=== PATIENT | male | born 1980 | race Caucasian/White ===

== ENCOUNTER 2023-12-20 09:22 | Emergency (ER) | payer BC, SELFPAY ==
[2023-12-20 09:27] VITALS: BP 131/92
--- NOTE | 2023-12-20 09:44 | ED.GENMED ---
History of Present Illness
General
Chief Complaint: Oral/Mouth Problem
Time Seen by Provider: 12/20/23 09:31
History of Present Illness
History of Present Illness:
-year-old male presents to the emergency department left maxillary pain. He developed pain earlier in the week and saw his dentist yesterday, reportedly had numerous dental series x-rays that were unremarkable. He was recommended to see a root
canal specialist. He states the pain is constant, nonradiating. He has no fevers, chills, sweats, nasal congestion, rhinorrhea, ear pain, or sore throat. No jaw claudication. Has taken intermittent doses of ibuprofen without relief
Review of Systems
Review of Systems
Allergies reviewed?: Yes
All Other Systems: ROS reviewed and negative except as documented in HPI and ROS
Phy Exam
Physical Exam
Physical Exam:
GEN: Well appearing, NAD, WDWN
HEENT: Oral mucosa moist, no scleral icterus. Normal dentition, no obvious dental caries to the left maxillary teeth, no gingival erythema, swelling, grossly nontender to palpation. TMJ range of motion is normal without crepitus. No temporal
artery tenderness to the EXTR bilaterally with no erythema. No cervical adenopathy bilaterally
Cardiac: Regular rate
Lung: No respiratory distress, no tachypnea
MSK: No gross deformity or injuries
Skin: Good color, no pallor or jaundice, no rashes
Neuro: AO x3, moves all extremities freely
Psych: Calm, cooperative
Course
Vital Signs
Initial and Last Documented VS:
Initial Vital Signs
Temp Pulse Resp BP Pulse Ox
98.3 F 68 16 131/92 100
12/20/23 09:27 12/20/23 09:27 12/20/23 09:27 12/20/23 09:27 12/20/23 09:27
Last Documented Vital Signs
Temp Pulse Resp BP Pulse Ox
98.3 F 68 16 131/92 100
12/20/23 09:27 12/20/23 09:27 12/20/23 09:27 12/20/23 09:27 12/20/23 09:27
MDM/Problems Addressed
MDM/Problems Addressed:
Exam is grossly benign. He reportedly had outpatient dental x-rays that were negative. I see no clinical evidence for dental infection. He has no symptoms of sinusitis at this time. He is at age 50 and has no jaw claudication to suggest
tenosynovitis. Etiology unclear, recommend NSAIDs and plan to follow-up with root canal specialist as discussed with his dentist
*Critical Care Note
Total Time (30-74mins, 75-104mins- exclusive of procedures): Not Applicable
ED Attending Note
-
Portions of this chart may have been created with voice recognition software.� Occasional wrong word or��sound alike� substitutions may have occurred due to the inherent limitations of voice recognition software.
Discharge Plan
Departure
Patient Disposition: Home (Routine Discharge)
Date of Disposition: 12/20/23
Time of Disposition: 09:44
Patient with high blood pressure during this ER visit?: No
Discharge Problem:
Pain in upper jaw
Instructions: Dental Pain (DC)
Prescriptions:
New
diclofenac sodium 75 mg tablet,delayed release (DR/EC)
75 mg PO BID Qty: 14 0RF
Activity Restrictions/Additional Instructions:
Follow up with the root canal specialist as discussed
There is no evidence of tooth infection at this time
Interventions
Interventions:
*Nursing Disposition Last Done: 12/20/23 09:59
Discharge Date and Time
Discharge Date/Time: 12/20/23 10:00
Print Language: GEORGIAN
== END 2023-12-20 10:00 | disposition home or self-care (01) ==
LOC: EMR 09:22
PROVIDERS: EMERGENCY PHYSICIAN Emergency Medicine
DX: R68.84 Jaw pain (principal)
CPT/HCPCS: 99283

== ENCOUNTER 2025-03-09 14:19 | Emergency (ER) | payer BC, SELFPAY ==
[2025-03-09 14:22] VITALS: BP 129/92
[2025-03-09 14:36] LABS: Hematocrit 40.4 % (39.0-52.0); Hemoglobin 14.1 g/dL (13.0-18.0); Mean Corp Hgb Conc. 34.9 g/dL (33.0-37.0); Mean Corpuscular Volume 85.1 fL (80.0-94.0); Nucleated Red Blood Cells % 0 % (-); Platelet Count 287 10^3/uL (130-400); Red Cell Dist. Width 12.8 % (11.5-14.5)
[2025-03-09 14:54] LABS: ALT (SGPT) 19 U/L (0-50); AST (SGOT) 20 U/L (17-59); Albumin 4.9 g/dl (3.5-5.0); Alkaline Phosphatase 50 U/L (38-126); Blood Urea Nitrogen 14 mg/dl (9-20); Calcium 9.3 mg/dl (8.4-10.2); Carbon Dioxide 27 mmol/L (22-30); Chloride 104 mmol/L (98-107); Glucose 100 mg/dl (70-99); Lipase 34 U/L (23-300); Potassium 4.4 mmol/L (3.5-5.1); Sodium 137 mmol/L (135-145); Total Protein 8.0 g/dl (6.3-8.2); eGFR > 60.00
--- NOTE | 2025-03-09 15:21 | ED.GENMED ---
History of Present Illness
General
Chief Complaint: Abdominal Pain
Source: patient
Exam Limitations: none
Time Seen by Provider: 03/09/25 15:12
Nursing documentation reviewed up to this point in time: agreed with
History of Present Illness
History of Present Illness:
Patient to emergency department with complaint of left lower quadrant abdominal pain. He has had this pain intermittently over the past few months. He has never had a prior evaluation for this. Pain usually resolves on own without intervention.
States pain he is experiencing now is not improving. He denies fever or chills, nausea/vomiting/diarrhea. Last bowel movement was this morning and reports this as normal. He reports he has not had anything to eat for the last 24 hours. States
his parents have both had bowel issues multiple times and they were always told not to eat when they arrived at the hospital. He is also reporting some pain with urination. States he was seen at urgent care prior to coming to the emergency
department. He states he had a urinalysis performed there and that it was 'normal '. Will recheck your tonight. Brought self to the emergency department for evaluation
Past History
Past History
ED Past Medical History: None
ED Past Surgical History: None
Review of Systems
Review of Systems
Allergies reviewed?: Yes
All Other Systems: ROS reviewed and negative except as documented in HPI and ROS
Constitutional: Reports no symptoms
EENT: Reports no symptoms
Respiratory: Reports no symptoms
Cardiac: Reports no symptoms
ABD/GI: Reports abdominal pain (Left lower quadrant abdominal pain)
: Reports no symptoms
Musculoskeletal: Reports no symptoms
Skin: Reports no symptoms
Neurological: Reports no symptoms
Psychiatric: Reports no symptoms
Phy Exam
General Physical Exam
General Presentation: well appearing and no apparent distress
General age: appears stated age
General Skin: warm and dry
General Habitus: normal
General Mental: alert
Cardiovascular Exam
Cardiovascular Exam: regular rate/rhythm
Pulmonary Exam
Pulmonary Exam: lungs clear and no respiratory distress
Gastrointestinal Exam
Gastrointestinal Exam: soft, no organomegaly, no pulsatile mass and non distended
Palpation: left upper quadrant: No tenderness, left lower quadrant: Moderate tenderness, right upper quadrant: No tenderness and right lower quadrant: No tenderness
Musculoskeletal Exam
Musculoskeletal Exam: full ROM and neuro vasc intact
Skin Exam
Skin Exam: normal color, warm/dry and no rash
Psychiatric Exam
Psychiatric Exam: normal mood/affect
Course
Orders/Labs/Results
Orders:
Orders
03/09/25 14:29
Complete Blood Count/With Diff Urgent
Comprehensive Metabolic Panel Urgent
Lipase Urgent
03/09/25 15:20
CT Abd/pelvis W Iv Cont Urgent
Comment:
Reason For Exam: LLQ pain
Urinalysis Reflex To Culture Urgent
03/09/25 18:14
Amoxicillin 875 mg/Clav 125 mg [Augmentin 875 mg/125 mg] 1 tablet PO NOW STA
Abnormal Lab Results
03/09/25
14:29
Glucose 100 H mg/dl
(70-99)
03/09/25 14:29
03/09/25 14:29
Vital Signs
Initial and Last Documented VS:
Initial Vital Signs
Temp Pulse Resp BP Pulse Ox
97.8 F 93 16 129/92 97
03/09/25 14:22 03/09/25 14:22 03/09/25 14:22 03/09/25 14:22 03/09/25 14:22
Last Documented Vital Signs
Temp Pulse Resp BP Pulse Ox
97.8 F 93 16 129/92 97
03/09/25 14:22 03/09/25 14:22 03/09/25 14:22 03/09/25 14:22 03/09/25 15:26
*Radiology
Radiology exam reviewed: radiology read reviewed
*Pulse Oximetry
SaO2: 97
Oxygen Mode of Delivery: Room air
Patient hypoxic: no
*Critical Care Note
Total Time (30-74mins, 75-104mins- exclusive of procedures): Not Applicable
Update Note
Update Note:
Patient to the emergency department for evaluation of left lower abdominal pain. He has had this pain intermittently in the past but today pain seems worse. Denies fever or chills. Vital signs stable, he remains afebrile. Labs reviewed WBC 8.4,
CMP unremarkable. CT of abdomen and pelvis completed, confirms acute diverticulitis of the proximal sigmoid colon. No evidence of perforation or abscess. CT finding also of moderate bladder wall thickening as can be seen with cystitis or bladder
outlet obstruction. Patient was asked for a urinalysis at the beginning of the exam. He states that he had a urinalysis completed at urgent care prior to coming here and that he he was told there was no evidence of infection. He did not give
another sample while in the ED. Discussed bladder findings with him and he is aware that the exam is incomplete without the urinalysis. He will be discharged home tonight was placed on Augmentin 875 mg twice daily x 10 days. He was instructed to
follow-up with his family doctor for the bladder wall thickening, and to follow-up with GI for diverticulitis. He was given instructions on signs and symptoms to return to the emergency department.
ED Attending Note
-
Portions of this chart may have been created with voice recognition software.� Occasional wrong word or��sound alike� substitutions may have occurred due to the inherent limitations of voice recognition software.
Discharge Plan
Departure
Patient Disposition: Home (Routine Discharge)
Date of Disposition: 03/09/25
Time of Disposition: 18:15
Patient with high blood pressure during this ER visit?: No
Condition: Good
Covid-19: Not Applicable
Discharge Problem:
Diverticulitis
Instructions: Clear Liquid Diet, Diverticulitis (DC)
Prescriptions:
New
amoxicillin-pot clavulanate 875-125 mg tablet
1 tab PO BID Qty: 20 0RF
No Action
diclofenac sodium 75 mg tablet,delayed release (DR/EC)
75 mg PO BID Qty: 14 0RF
Referrals:
Madelaine Fuller MD [Active, Gastroenterology] - Call in 1-3 days for appt
NONE,* [Family Provider, Internal Medicine]
Activity Restrictions/Additional Instructions:
Return to the emergency department for any changes in/worsening of your symptoms. As we discussed along with diverticulitis your CAT scan showed thickening of the bladder wall. This can be seen with infection and also with bladder outlet
obstruction. Without a urinalysis I am unable to evaluate for an infectious process. Please follow-up with your family doctor for further evaluation and monitoring of this finding.
Interventions
Interventions:
*Risk Screen - Suicide Last Done: 03/09/25 14:22
Discharge Date and Time
Print Language: [id number]
[2025-03-09] MEDS: AUGMENTIN 875 MG/125 MG 1 TABLET PO (18:31)
== END 2025-03-09 18:45 | disposition home or self-care (01) ==
LOC: EMR 14:19
PROVIDERS: EMERGENCY PHYSICIAN Student in an Organized Health Care Education/Training Program
DX: K57.32 Diverticulitis of large intestine without perforation or abscess without bleeding (principal); N32.89 Other specified disorders of bladder
CPT/HCPCS: 99284; 74177; 80053; 83690; 85025; Q9967